=== PATIENT | male | born 1965 | race Hispanic/Latino ===

== ENCOUNTER 2018-02-09 00:56 | Emergency (ER) | payer MEDICAID ==
[~2018-02-09 00:56] MED LIST: LISI2.5T2 PO; METF500T6 PO; TRAM50TA4 PO; VITA1TAB22 PO
[2018-02-09] MEDS ORDERED: ASPIRIN 325 MG TABLET ONE (00:58)
[2018-02-09 01:11] LABS: BASOPHILS % (AUTO) 0.4 % (0.0-5.0); EOSINOPHILS % (AUTO) 0.8 % (0.0-8.0); HEMATOCRIT 45.7 % (42-54); LYMPHOCYTES % (AUTO) 23.3 % (21.0-51.0); MEAN CORPUSCULAR HEMOGLOBIN 29.8 pg (27.0-33.0); MEAN CORPUSCULAR HGB CONC 33.3 g/dL (32.0-36.0); MEAN CORPUSCULAR VOLUME 89.4 fL (79-99); MONOCYTES % (AUTO) 8.1 % (3.0-13.0); NEUTROPHILS % (AUTO) 67.4 % (40.0-77.0); NUCLEATED RED BLOOD CELLS 0.1 % (0.0-0.19); PLATELET COUNT (AUTO) 147 K/uL (130-400); RED BLOOD CELL COUNT(AUTO) 5.11 MIL/uL (4.50-6.20); RED CELL DISTRIBUTION WIDTH 12.8 % (11.0-15.5); WHITE BLOOD COUNT (AUTO) 9.2 K/uL (4.8-10.8)
[2018-02-09 01:26] LABS: INR 0.94 (0.85-1.15); PARTIAL THROMBOPLASTIN TIME 24.2 SEC (26.3-35.5); PROTHROMBIN TIME 9.9 SEC (9.6-11.6)
[2018-02-09 01:39] LABS: ALBUMIN 3.8 g/dL (3.5-5.0); BILIRUBIN,TOTAL 0.8 mg/dL (0.2-1.0); CREATINE KINASE MB 1.1 ng/mL (0.5-3.6); CREATININE 1.2 mg/dL (0.5-1.5); POTASSIUM 4.2 mmol/L (3.5-5.1); TOTAL PROTEIN, SERUM 7.3 g/dL (6.0-8.3)
[2018-02-09] MEDS ORDERED: SODIUM CHLORIDE 0.9% 1000ML 1,000 ML IV ONE (02:18)
[2018-02-09] MEDS ORDERED: INSULIN HUMULIN R 100 UNIT/ML 3ML ONE (02:20)
[2018-02-09] MEDS ORDERED: ACETAMINOPHEN-CODEINE ELIXIR 5 ML UDCUP ONE (02:52)
== END 2018-02-09 03:56 | disposition home or self-care (01) ==
LOC: EDH 00:56
DX: E11.65 Type 2 diabetes mellitus with hyperglycemia (principal); R07.89 Other chest pain; M81.0 Age-related osteoporosis without current pathological fracture; M06.9 Rheumatoid arthritis, unspecified; E78.5 Hyperlipidemia, unspecified; Z90.49 Acquired absence of other specified parts of digestive tract
CPT/HCPCS: 36415; 71045; 80053; 82550; 82553; 82948; 83874; 84484; 85025; 85610; 85730; 93005; 94761; 96361; 96374; 99285; J1815; J7030

== ENCOUNTER 2019-08-07 17:23 | Observation (INO) | payer MEDICAID ==
[~2019-08-07] VITALS: Ht 162.6 cm; Wt 83.9 kg
[~2019-08-07 17:23] MED LIST changes: +METF-444 PO; -METF500T6 PO
[2019-08-07] MEDS ORDERED: ASPIRIN 325 MG TABLET ONE (17:55)
[2019-08-07 18:02] LABS: BASOPHILS % (AUTO) 0.3 % (0.0-5.0); EOSINOPHILS % (AUTO) 0.9 % (0.0-8.0); HEMATOCRIT 44.6 % (42-54); LYMPHOCYTES % (AUTO) 4.6 % (21.0-51.0); MEAN CORPUSCULAR HEMOGLOBIN 30.7 pg (27.0-33.0); MEAN CORPUSCULAR HGB CONC 33.9 g/dL (32.0-36.0); MEAN CORPUSCULAR VOLUME 90.6 fL (79-99); MONOCYTES % (AUTO) 5.5 % (3.0-13.0); NEUTROPHILS % (AUTO) 88.7 % (40.0-77.0); PLATELET COUNT (AUTO) 169 K/uL (130-400); RED BLOOD CELL COUNT(AUTO) 4.92 MIL/uL (4.50-6.20); RED CELL DISTRIBUTION WIDTH 14.2 % (11.0-15.5); WHITE BLOOD COUNT (AUTO) 11.1 K/uL (4.8-10.8)
[2019-08-07 18:10] LABS: POTASSIUM 4.7 mmol/L (3.5-5.1)
[2019-08-07 18:11] LABS: INR 0.95 (0.85-1.15); PARTIAL THROMBOPLASTIN TIME 26.9 SEC (26.3-35.5)
[2019-08-07 18:22] LABS: ALBUMIN 3.5 g/dL (3.5-5.0); BILIRUBIN,TOTAL 0.7 mg/dL (0.2-1.0); TOTAL PROTEIN, SERUM 7.4 g/dL (6.0-8.3)
[2019-08-07 19:45] LABS: AMPHET/METH SCREEN,URINE NEGATIVE (NEGATIVE); BARBITURATE SCREEN, URINE NEGATIVE (NEGATIVE); BENZODIAZEPINES SCREEN,URINE NEGATIVE (NEGATIVE); CANNABINOID SCREEN,URINE NEGATIVE (NEGATIVE); COCAINE SCREEN,URINE NEGATIVE (NEGATIVE); OPIATE SCREEN,URINE NEGATIVE (NEGATIVE); PHENCYCLIDINE SCREEN,URINE NEGATIVE (NEGATIVE)
[2019-08-07] MEDS ORDERED: KETOROLAC TROMETHAMINE 30MG/ML ONE (21:15)
[2019-08-08 01:30] VITALS: BP 126/79
[2019-08-08] MEDS ORDERED: IBUP-2070 PO (01:58)
[2019-08-08] MEDS ORDERED: GLIP2.5T17 PO (01:58)
[2019-08-08] MEDS ORDERED: OMEG-148 PO (01:58)
[2019-08-08] MEDS ORDERED: TRAZ-185 PO (01:58)
[2019-08-08] MEDS ORDERED: LIFI1DRO OU (01:58)
[2019-08-08] MEDS ORDERED: LOTE55OS OU (01:58)
[2019-08-08] MEDS ORDERED: INSLAN SQ (01:58)
[2019-08-08] MEDS ORDERED: GABA-529 PO (01:58)
[2019-08-08] MEDS ORDERED: TERB5TAB15 PO (01:58)
[2019-08-08] MEDS ORDERED: KETOROLAC TROMETHAMINE 15MG/ML IV PRN (02:00)
--- NOTE | 2019-08-08 02:03 | NUR ---
ADMIT PT ADMITTED TO ROOM 413,AAOX3,DENIES ANY CP AT THIS TIME. NO DISTRESS NOTED. V/S MONITORED, STABLE. ADMISSION CARE DONE. ADMISSION DATA BASE COMPLETED. ORIENTED TO ROOM AND UNIT. IN FOR MORE CARE AND MANAGEMENT. Addendum: 08/08/19 at 0239 by SIN DAVILA RN RN Amended: Links added.
[2019-08-08] MEDS: NITROGLYCERIN 1GM/1 INCH PACKET TD SCH ×2 (02:25→09:30)
[2019-08-08 04:00] VITALS: BP 123/66
--- NOTE | 2019-08-08 05:00 | NUR ---
[facility]OWER PCP IN AND ASSISTED PT TO SHOWER. PT TOLERATED ACTIVITY WELL. KEPT NPO. FOR MORE CARE.
--- NOTE | 2019-08-08 05:30 | NUR ---
LOLI GUSMAN, LOLI FOR HOSPITALIST, MADE AWARE THAT PT'S HOME MEDS WERE ALREADY PLACED IN THE COMPUTER. NO NEW ORDERS GIVEN.
[2019-08-08 05:54] LABS: BASOPHILS % (AUTO) 0.3 % (0.0-5.0); EOSINOPHILS % (AUTO) 1.2 % (0.0-8.0); HEMATOCRIT 41.8 % (42-54); LYMPHOCYTES % (AUTO) 12.9 % (21.0-51.0); MEAN CORPUSCULAR HEMOGLOBIN 30.2 pg (27.0-33.0); MEAN CORPUSCULAR HGB CONC 33.1 g/dL (32.0-36.0); MEAN CORPUSCULAR VOLUME 91.2 fL (79-99); MONOCYTES % (AUTO) 11.8 % (3.0-13.0); NEUTROPHILS % (AUTO) 73.8 % (40.0-77.0); PLATELET COUNT (AUTO) 155 K/uL (130-400); RED BLOOD CELL COUNT(AUTO) 4.59 MIL/uL (4.50-6.20); WHITE BLOOD COUNT (AUTO) 7.2 K/uL (4.8-10.8)
[2019-08-08 06:22] LABS: HEMOGLOBIN A1C 8.4 % (4.0-6.0)
[2019-08-08] MEDS: INSULIN HUMULIN R 100 UNIT/ML 3ML SQ SCH ×2 (06:33→11:30)
[2019-08-08 06:36] LABS: ALBUMIN 3.2 g/dL (3.5-5.0); BILIRUBIN,TOTAL 0.8 mg/dL (0.2-1.0); CREATININE 0.9 mg/dL (0.5-1.5); POTASSIUM 3.3 mmol/L (3.5-5.1); TOTAL PROTEIN, SERUM 6.8 g/dL (6.0-8.3)
[2019-08-08 07:31] VITALS: BP 98/71
--- NOTE | 2019-08-08 08:00 | NUR ---
NOTE AAOX3. DENIES CHEST PAIN SOB OR ANY KIND OF DISTRESS. NONE VISIBLY NOTED EITHER. FAMILY AT HIS SIDE. NO N/V. BBS CLEAR TO ALL LOBES. NO OTHER PROBLEMS VOICED. CAME IN WITH DX CHEST PAIN BUT REPORTS SYMPTOMS OF NECK PAIN HEADACHE AND CHEST PAIN. ALL CARDIAC ENZYMES HAVE BEEN NEGATIVE. WE ARE PENDING PRIMARY M.D. TO [facility]. HE IS NPO IN CASE OTHER TESTING IS ORDERED.
[2019-08-08] MEDS ORDERED: ATOR40TA69 PO (08:42)
[2019-08-08] MEDS ORDERED: GLIP10TA9 PO (08:42)
[2019-08-08] MEDS ORDERED: MECL-111 PO (08:42)
[2019-08-08] MEDS ORDERED: FAMOTIDINE/PF 20 MG/2 ML VIAL IV SCH (09:00)
[2019-08-08] MEDS ORDERED: ASPIRIN 81MG TAB.CHEW PO SCH (09:00)
[2019-08-08] MEDS ORDERED: FLU VACC QS2019-20 36MOS UP/PF 60 MCG/0.5 ML ML IM ONE (09:00)
[2019-08-08] MEDS ORDERED: ENOXAPARIN SODIUM 30 MG/0.3 ML SQ SCH (09:00)
--- NOTE | 2019-08-08 09:45 | NUR ---
NOTE DR CARDOSO MADE ROUNDS AND HE IS GOING TO DC PATIENT TODAY AFTER LUNCH. REFER TO CHART FOR ORDERS.
[2019-08-08 11:17] VITALS: BP 121/61
--- NOTE | 2019-08-08 13:00 | NUR ---
note DISCHARGE INSTRUCTIONS GIVEN AT THIS TIME. REFER TO DC SUMMARY FOR DETAILS. STABLE UPON LEAVING.
== END 2019-08-08 13:19 | disposition home or self-care (01) ==
LOC: EDH 17:23 → INTOOBSV 17:24 → EDHIP 17:24 → 4CH 08-08 01:12
PROVIDERS: ADMIT Internal Medicine; ATTEND Internal Medicine
DX: M94.0 Chondrocostal junction syndrome [Tietze] (principal); E11.9 Type 2 diabetes mellitus without complications; E78.5 Hyperlipidemia, unspecified; I10 Essential (primary) hypertension; M06.9 Rheumatoid arthritis, unspecified; M81.0 Age-related osteoporosis without current pathological fracture; E66.9 Obesity, unspecified; Z23 Encounter for immunization; Z79.84 Long term (current) use of oral hypoglycemic drugs; Z79.899 Other long term (current) drug therapy; Z68.30 Body mass index [BMI] 30.0-30.9, adult
CPT/HCPCS: 36415 ×2; 71045; 72125; 80053 ×2; 80061; 80305; 82550; 82948 ×2; 83036; 83874; 84484 ×3; 85025 ×2; 85610; 85651; 85730; 86140; 90471; 93005 ×2; 96372; 96374; 96375; 99284; G0378 ×3; J1650; J1885 ×2; J3490; Q2035

== ENCOUNTER 2022-02-18 01:26 | Observation (INO) | payer MEDICAID, OTHER ==
[~2022-02-18] VITALS: Ht 162.6 cm; Wt 77.6 kg
[~2022-02-18 01:26] MED LIST changes: +ATOR40TA69 PO; +GABA-529 PO; +GLIP10TA9 PO; +IBUP-2070 PO; +INSLAN SQ; +LIFI1DRO OU; +LISI2.5T13 PO; -LISI2.5T2 PO; +LOTE55OS OU; +MECL-160 PO; +OMEG-148 PO; +TERB5TAB15 PO; +TRAZ-185 PO
[2022-02-18] MEDS ORDERED: FLUCONAZOLE 100 MG TAB PO ONE (02:00)
[2022-02-18 02:31] LABS: BASOPHILS % (AUTO) 0.3 % (0.0-5.0); EOSINOPHILS % (AUTO) 1.3 % (0.0-8.0); HEMATOCRIT 43.2 % (42-54); LYMPHOCYTES % (AUTO) 19.4 % (21.0-51.0); MEAN CORPUSCULAR HEMOGLOBIN 29.2 pg (27.0-33.0); MEAN CORPUSCULAR HGB CONC 32.4 g/dL (32.0-36.0); MEAN CORPUSCULAR VOLUME 90.2 fL (79-99); MONOCYTES % (AUTO) 7.2 % (3.0-13.0); NEUTROPHILS % (AUTO) 71.4 % (40.0-77.0); PLATELET COUNT (AUTO) 144 K/uL (130-400); RED BLOOD CELL COUNT(AUTO) 4.79 MIL/uL (4.50-6.20); RED CELL DISTRIBUTION WIDTH 12.6 % (11.0-15.5); WHITE BLOOD COUNT (AUTO) 7.8 K/uL (4.8-10.8)
[2022-02-18 02:32] LABS: APPEARANCE,URINE Clear (CLEAR); BILIRUBIN,URINE Negative (NEGATIVE); COLOR,URINE Yellow (YELLOW); GLUCOSE, URINE (UA) >=1000 mg/dL (NEGATIVE); KETONES,URINE Negative (NEGATIVE); LEUKOCYTE ESTERASE ,URINE Negative (NEGATIVE); NITRATE,URINE Negative (NEGATIVE); OCCULT BLOOD,URINE Negative (NEGATIVE); PROTEIN,URINE Negative (NEGATIVE); UROBILINOGEN,URINE 0.2 mg/dL (0.2-1.0)
[2022-02-18 02:43] LABS: CREATININE 1.2 mg/dL (0.5-1.5); POTASSIUM 3.4 mmol/L (3.5-5.1)
[2022-02-18 02:47] LABS: ALBUMIN 3.2 g/dL (3.5-5.0); BILIRUBIN,TOTAL 0.4 mg/dL (0.2-1.0); TOTAL PROTEIN, SERUM 6.4 g/dL (6.0-8.3)
[2022-02-18 03:00] LABS: BACTERIA,URINE Rare /HPF (None Seen); RBC,URINE 0-1 /HPF (0-1); WBC,URINE None Seen /HPF (0-1)
[2022-02-18] MEDS ORDERED: LEVOFLOXACIN 750 MG/D5W 150 ML 150 ML IV ONE (03:00)
[2022-02-18] MEDS ORDERED: 0.9%NACL 1000ML 1,000 ML IV ONE ×2 (03:00→03:01)
[2022-02-18] MEDS ORDERED: LEVOFLOXACIN 750 MG/D5W 150 ML 150 ML ONE (03:01)
[2022-02-18] MEDS ORDERED: PIOG30TA70 PO (03:16)
[2022-02-18] MEDS ORDERED: LISI10TA24 PO (03:16)
[2022-02-18] MEDS ORDERED: METF-446 PO (03:16)
[2022-02-18] MEDS ORDERED: ATOR10TA69 PO (03:16)
[2022-02-18] MEDS ORDERED: ASPI-1005 PO (03:16)
[2022-02-18] MEDS ORDERED: CLOT15CR23 TP (03:16)
[2022-02-18] MEDS ORDERED: HYDR28.32 TP (03:16)
[2022-02-18] MEDS ORDERED: LACTULOSE 20 GM/30 ML UDCUP PO PRN (03:30)
[2022-02-18] MEDS ORDERED: ACETAMINOPHEN 325 MG TAB PO PRN (03:30)
[2022-02-18] MEDS ORDERED: MORPHINE 2 MG SYG IVP ONE (03:30)
[2022-02-18] MEDS ORDERED: ONDANSETRON 4MG INJ IVP ONE (03:30)
[2022-02-18] MEDS ORDERED: ONDANSETRON 4MG INJ IVP PRN (03:30)
[2022-02-18] MEDS ORDERED: INSULIN HUMULIN R 100 UNIT/ML 3ML ONE (03:49)
[2022-02-18] MEDS ORDERED: INSULIN HUMULIN R 100 UNIT/ML 3ML IV ONE (04:00)
[2022-02-18 04:22] VITALS: BP 117/60
[2022-02-18] MEDS ORDERED: TRAM50TA4 PO (04:35)
[2022-02-18 08:00] VITALS: BP 118/72
[2022-02-18] MEDS ORDERED: TRAMADOL HCL 50 MG TABLET PO PRN (08:00)
[2022-02-18] MEDS ORDERED: KCL 20 MEQ ERTAB PO PRN (08:30)
[2022-02-18] MEDS ORDERED: GLUCAGON 1MG KIT 1 MG ML IM PRN (08:30)
[2022-02-18] MEDS ORDERED: POTASSIUM CHLORIDE 10% ELIXIR 20 MEQ/15 ML UDCUP PO PRN (08:30)
[2022-02-18] MEDS ORDERED: MAGNESIUM 2GM PREMIX 50ML 50 ML IV PRN (08:30)
[2022-02-18] MEDS ORDERED: POTASSIUM CHLORIDE 20MEQ/100ML 100 ML IV PRN (08:30)
[2022-02-18] MEDS ORDERED: DEXTROSE 50%-WATER 50 ML DISP.SYRIN IV PRN (08:30)
[2022-02-18] MEDS ORDERED: ASPIRIN 81MG CHEW TAB PO SCH (09:00)
[2022-02-18] MEDS ORDERED: HYDROCORTISONE 1% CREAM 28G TP SCH (09:00)
[2022-02-18] MEDS ORDERED: METRONIDAZOLE 250 MG TABLET PO SCH (09:00)
[2022-02-18] MEDS ORDERED: CLOTRIMAZOLE 30 GM CREAM.GM. TP SCH (09:00)
[2022-02-18] MEDS ORDERED: LISINOPRIL 10 MG TABLET PO SCH (09:00)
[2022-02-18] MEDS ORDERED: METR-361 PO (11:17)
[2022-02-18] MEDS ORDERED: INSULIN HUMULIN R 100 UNIT/ML 3ML SQ SCH (11:30)
[2022-02-18 12:00] VITALS: BP 119/72
[2022-02-18 14:20] LABS: POTASSIUM 3.9 mmol/L (3.5-5.1)
[2022-02-18] MEDS ORDERED: ATORVASTATIN 10 MG TABLET PO SCH (21:00)
== END 2022-02-18 15:40 | disposition home or self-care (01) ==
LOC: EDH 01:26 → EDHIP 03:17 → 3BH 03:42
PROVIDERS: ADMIT Radiology Diagnostic Radiology; ATTEND Radiology Diagnostic Radiology
DX: N47.2 Paraphimosis (principal); Z20.822 Contact with and (suspected) exposure to COVID-19; E87.1 Hypo-osmolality and hyponatremia; E78.5 Hyperlipidemia, unspecified; E11.65 Type 2 diabetes mellitus with hyperglycemia; B37.49 Other urogenital candidiasis; I10 Essential (primary) hypertension; M19.90 Unspecified osteoarthritis, unspecified site; G89.29 Other chronic pain; M25.569 Pain in unspecified knee; L98.9 Disorder of the skin and subcutaneous tissue, unspecified; M06.9 Rheumatoid arthritis, unspecified; M81.0 Age-related osteoporosis without current pathological fracture; N47.1 Phimosis; N48.29 Other inflammatory disorders of penis; Z79.4 Long term (current) use of insulin; Z79.899 Other long term (current) drug therapy; Z98.890 Other specified postprocedural states; Z79.82 Long term (current) use of aspirin; Z79.84 Long term (current) use of oral hypoglycemic drugs
CPT/HCPCS: 36415; 80053; 81001; 82948 ×2; 83036; 84132; 84295; 85025; 87088; 87635; 96365; 96375; 99284; G0378 ×12; J1815 ×2; J1956; J2405; J7030

== ENCOUNTER 2022-04-15 06:51 | Day surgery (SDC) | payer OTHER ==
[2022-04-09 12:46] LABS: BASOPHILS % (AUTO) 0.4 % (0.0-5.0); EOSINOPHILS % (AUTO) 1.2 % (0.0-8.0); HEMATOCRIT 44.5 % (42-54); LYMPHOCYTES % (AUTO) 23.9 % (21.0-51.0); MEAN CORPUSCULAR HEMOGLOBIN 29.5 pg (27.0-33.0); MEAN CORPUSCULAR HGB CONC 31.9 g/dL (32.0-36.0); MEAN CORPUSCULAR VOLUME 92.5 fL (79-99); MONOCYTES % (AUTO) 6.2 % (3.0-13.0); NEUTROPHILS % (AUTO) 67.9 % (40.0-77.0); PLATELET COUNT (AUTO) 170 K/uL (130-400); RED BLOOD CELL COUNT(AUTO) 4.81 MIL/uL (4.50-6.20); RED CELL DISTRIBUTION WIDTH 12.6 % (11.0-15.5); WHITE BLOOD COUNT (AUTO) 6.7 K/uL (4.8-10.8)
[2022-04-09 13:00] LABS: CREATININE 0.8 mg/dL (0.5-1.5); POTASSIUM 4.2 mmol/L (3.5-5.1)
[2022-04-09 13:01] LABS: INR 0.94 (0.85-1.15); PROTHROMBIN TIME 10.3 SEC (9.6-11.6)
[2022-04-09 13:02] LABS: PARTIAL THROMBOPLASTIN TIME 27.6 SEC (26.3-35.5)
[2022-04-14 10:40] VITALS: BP 140/82
[~2022-04-15] VITALS: Ht 162.6 cm; Wt 77.1 kg
[2022-04-15] VITALS (13 sets, daily range): BP systolic 100–130; BP diastolic 57–78
[~2022-04-15 06:51] MED LIST changes: +ASPI-1005 PO; +ATOR10TA69 PO; -ATOR40TA69 PO; +CLOT15CR23 TP; +ERGO500093 PO; -GABA-529 PO; -GLIP10TA9 PO; +HYDR28.32 TP; -IBUP-2070 PO; -INSLAN SQ; +INSU100I35 SQ; -LIFI1DRO OU; +LISI10TA24 PO; -LISI2.5T13 PO; -LOTE55OS OU; -MECL-160 PO; -METF-444 PO; +METF-446 PO; -OMEG-148 PO; +PIOG30TA70 PO; +SEMA3TAB4 PO; -TERB5TAB15 PO; -TRAZ-185 PO; -VITA1TAB22 PO
[2022-04-15] MEDS ORDERED: CEFAZOLIN SODIUM 1 GM VIAL ONE (07:23)
[2022-04-15] MEDS ORDERED: 0.9%NACL 1000ML 1,000 ML IV ONE (07:23)
[2022-04-15] MEDS ORDERED: LIDOCAINE HCL-MPF 2% 10ML AMP IJ ONE (09:48)
[2022-04-15] MEDS ORDERED: FENTANYL CITRATE PF 50 MCG/1 ML 2ML VIAL ONE (09:48)
[2022-04-15] MEDS ORDERED: PROPOFOL 10 MG/ML 20ML VIAL IV ONE (09:48)
[2022-04-15] MEDS ORDERED: CEFAZOLIN SODIUM 2 GM VIAL IV ONE (09:49)
[2022-04-15] MEDS ORDERED: BACITRACIN 28.4 GM OINT TP ONE ×2 (09:54→10:15)
[2022-04-15] MEDS ORDERED: BUPIVACAINE/PF 0.25% 30ML VIAL IJ ONE (09:54)
[2022-04-15] MEDS ORDERED: BUPIVACAINE/EPI/PF 0.25% 30ML VIAL IJ ONE (10:09)
[2022-04-15] MEDS ORDERED: KETOROLAC 30MG VIAL (30MG/ML) ONE (10:49)
[2022-04-15] MEDS ORDERED: ONDANSETRON 4MG INJ ONE (10:49)
== END 2022-04-15 12:15 | disposition home or self-care (01) ==
LOC: DAH 06:51
PROVIDERS: ATTEND Urology
DX: N47.1 Phimosis (principal); N47.2 Paraphimosis; I10 Essential (primary) hypertension; E78.5 Hyperlipidemia, unspecified; E11.9 Type 2 diabetes mellitus without complications; M06.9 Rheumatoid arthritis, unspecified; Z90.49 Acquired absence of other specified parts of digestive tract; Z79.82 Long term (current) use of aspirin; Z79.899 Other long term (current) drug therapy; Z98.890 Other specified postprocedural states; Z79.01 Long term (current) use of anticoagulants
CPT/HCPCS: 36415; 54161; 80048; 82948 ×2; 85025; 85610; 85730; 87635; 93005; A4215; A4221; A4222; A4223; A4606; A4663; C9803; J0690 ×2; J1885; J2405; J2704; J3010; J3490 ×3; J7030

== ENCOUNTER 2022-10-15 19:24 | Emergency (ER) | payer OTHER ==
[~2022-10-15] VITALS: Ht 162.6 cm; Wt 77.1 kg
[2022-10-15 19:42] LABS: BASOPHILS % (AUTO) 0.4 % (0.0-5.0); EOSINOPHILS % (AUTO) 1.1 % (0.0-8.0); HEMATOCRIT 38.4 % (42-54); LYMPHOCYTES % (AUTO) 22.9 % (21.0-51.0); MEAN CORPUSCULAR HGB CONC 32.6 g/dL (32.0-36.0); MEAN CORPUSCULAR VOLUME 92.3 fL (79-99); MONOCYTES % (AUTO) 6.5 % (3.0-13.0); NEUTROPHILS % (AUTO) 68.7 % (40.0-77.0); PLATELET COUNT (AUTO) 158 K/uL (130-400); RED BLOOD CELL COUNT(AUTO) 4.16 MIL/uL (4.50-6.20); RED CELL DISTRIBUTION WIDTH 12.2 % (11.0-15.5); WHITE BLOOD COUNT (AUTO) 7.9 K/uL (4.8-10.8)
[2022-10-15 19:51] LABS: CREATININE 0.9 mg/dL (0.5-1.5); POTASSIUM 3.5 mmol/L (3.5-5.1)
[2022-10-15 19:56] LABS: ALBUMIN 3.1 g/dL (3.5-5.0); TOTAL PROTEIN, SERUM 6.2 g/dL (6.0-8.3)
[2022-10-15] MEDS ORDERED: METH4TAB3 PO (22:19)
[2022-10-15 22:30] VITALS: BP 117/68
[2022-10-15] MEDS ORDERED: SOLU-MEDROL 125MG VIAL IVP ONE (22:30)
== END 2022-10-15 22:35 | disposition home or self-care (01) ==
LOC: EDH 19:24
DX: M94.0 Chondrocostal junction syndrome [Tietze] (principal); E11.9 Type 2 diabetes mellitus without complications; E78.00 Pure hypercholesterolemia, unspecified; I10 Essential (primary) hypertension; M06.9 Rheumatoid arthritis, unspecified; Z90.49 Acquired absence of other specified parts of digestive tract; Z98.890 Other specified postprocedural states; Z79.84 Long term (current) use of oral hypoglycemic drugs; Z79.4 Long term (current) use of insulin
CPT/HCPCS: 99285; 96374; 71045; 84484 ×2; 80053; 85025; 36415; 93005; J2930